=== PATIENT | male | born 1985 | race Caucasian/White ===

== ENCOUNTER 2020-07-24 13:53 | Emergency (ER) | payer OTHER ==
[~2020-07-24 13:53] MED LIST: IBUPROFEN600 MG PO; LODINE CAP 300300 MG PO; NORCO 5-325 TA1 EACH PO; PROTONIX40 MG PO; TAMIFLU75 MG PO; ZOFRAN ODT 4 MG4 MG PO
[2020-07-24] MEDS ORDERED: IBUPROFEN800 MG PO (16:01)
== END 2020-07-24 16:10 | disposition home or self-care (01) ==
LOC: ER1 13:53
DX: S20.211A Contusion of right front wall of thorax, initial encounter (principal); S40.011A Contusion of right shoulder, initial encounter; Z88.0 Allergy status to penicillin; W00.0XXA Fall on same level due to ice and snow, initial encounter; Y92.009 Unspecified place in unspecified non-institutional (private) residence as the place of occurrence of the external cause
CPT/HCPCS: 71111; 73030; 99283

== ENCOUNTER → 2020-08-21 | Outpatient (CLI) | payer OTHER ==
[~2020-08-21] MED LIST changes: +IBUPROFEN800 MG PO
== END ==
LOC: KOH-I 08-10 15:00
DX: M25.511 Pain in right shoulder (principal); S22.41XD Multiple fractures of ribs, right side, subsequent encounter for fracture with routine healing; X58.XXXD Exposure to other specified factors, subsequent encounter
CPT/HCPCS: 73200

== ENCOUNTER 2020-10-26 17:15 | Emergency (ER) | payer OTHER ==
[2020-10-26 17:54] LABS: HEMOGLOBIN 15.5 gm/dl (14.0-17.5); RED BLOOD COUNT 4.92 M/UL (4.20-5.50); WHITE BLOOD COUNT 6.7 K/UL (4.5-11.0)
[2020-10-26 18:29] LABS: BUN/CREATININE RATIO 12 (0-10)
[2020-10-28 08:13] LABS: HBSAG SCREEN Negative (Negative); HEP A AB, IGM Negative (Negative); HEP B CORE AB, IGM Negative (Negative); HEP C VIRUS AB <0.1 (0.0-0.9); HIV SCREEN 4TH GENERATION WRFX Non Reactive (Non Reactive)
== END 2020-10-26 18:37 | disposition home or self-care (01) ==
LOC: ER1 17:15
PROVIDERS: Physician Assistant Medical
DX: Z77.21 Contact with and (suspected) exposure to potentially hazardous body fluids (principal); Z87.442 Personal history of urinary calculi; Z79.899 Other long term (current) drug therapy; Z88.0 Allergy status to penicillin
CPT/HCPCS: 80053; 80074; 85025; 87389; 99283

== ENCOUNTER 2021-07-05 17:13 | Emergency (ER) | payer OTHER ==
[2021-07-05 18:50] LABS: HEMOGLOBIN 15.7 gm/dl (14.0-17.5); RED BLOOD COUNT 5.05 M/UL (4.20-5.50); WHITE BLOOD COUNT 7.5 K/UL (4.5-11.0)
[2021-07-05 19:33] LABS: BUN/CREATININE RATIO 15 (0-10)
== END 2021-07-05 20:11 | disposition home or self-care (01) ==
LOC: ER1 17:13
PROVIDERS: Physician Assistant Medical
DX: U07.1 COVID-19 (principal); Z88.0 Allergy status to penicillin; Z87.442 Personal history of urinary calculi
CPT/HCPCS: 71045; 80053; 81001; 85025; 99283; U0003